=== PATIENT | female | born 1935 | race Caucasian/White ===

== ENCOUNTER 2018-05-23 17:00 | Emergency (ER) | payer MEDICARE ==
[~2018-05-23] VITALS: Ht 157.5 cm; Wt 59.0 kg
[2018-05-23 17:54] LABS: GLUCOSE,POINT OF CARE 94 MG/DL (70-110)
[2018-05-23] MEDS ORDERED: ESCI10TA PO (18:18)
[2018-05-23] MEDS ORDERED: NA P133E4 PR (18:18)
[2018-05-23] MEDS ORDERED: MELA5TAB3 PO (18:18)
[2018-05-23] MEDS ORDERED: QUET25TA PO (18:18)
[2018-05-23] MEDS ORDERED: ACET-2247 PO (18:18)
[2018-05-23] MEDS ORDERED: OLAN2.5T3 PO (18:18)
[2018-05-23] MEDS ORDERED: BISA5TAB12 PO (18:18)
[2018-05-23] MEDS ORDERED: MOM30 PO (18:19)
[2018-05-23] MEDS ORDERED: CALC-1038 PO (18:19)
[2018-05-23 19:27] LABS: APPEARANCE,URINE TURBID (CLEAR); BILIRUBIN,URINE NEGATIVE (NEGATIVE); GLUCOSE, URINE (UA) NEGATIVE (NEGATIVE); KETONES,URINE NEGATIVE (NEGATIVE); LEUKOCYTE ESTERASE ,URINE LARGE (NEGATIVE); NITRATE,URINE NEGATIVE (NEGATIVE); OCCULT BLOOD,URINE SMALL (NEGATIVE); PROTEIN,URINE POS 1+ (NEGATIVE); UROBILINOGEN,URINE 0.2 mg/dL (<=1.0)
[2018-05-23 19:42] LABS: BACTERIA,URINE Many /HPF (None Seen); WBC,URINE >100 /HPF (0-5)
[2018-05-23 19:43] LABS: SQUAMOUS EPITHELIAL CELL,UR Few /LPF (None Seen)
[2018-05-23 19:57] VITALS: BP 140/98
[2018-05-23] MEDS ORDERED: CIPROFLOXACIN HCL 250 MG TABLET PO ONE (20:00)
== END 2018-05-23 21:18 | disposition home or self-care (01) ==
LOC: EMS 17:02
DX: N39.0 Urinary tract infection, site not specified (principal); F32.9 Major depressive disorder, single episode, unspecified; Z88.2 Allergy status to sulfonamides; Z88.8 Allergy status to other drugs, medicaments and biological substances
CPT/HCPCS: 51702; 87086